=== PATIENT | female | born 1970 | race Caucasian/White ===

== ENCOUNTER 2022-12-30 09:58 | Outpatient (CLI) | payer BC | END 2022-12-30 09:59 | disposition home or self-care (01) | LOC: CSHMAMMO 09:58 | PROVIDERS: ATTEND Family Medicine | DX: Z12.31 Encounter for screening mammogram for malignant neoplasm of breast (principal) | CPT/HCPCS: 77063; 77067 ==

== ENCOUNTER 2024-02-07 10:36 | Outpatient (CLI) | payer BC | END 2024-02-07 10:37 | disposition home or self-care (01) | LOC: CSHMAMMO 10:36 | PROVIDERS: ATTEND Family Medicine | DX: Z12.31 Encounter for screening mammogram for malignant neoplasm of breast (principal) | CPT/HCPCS: 77063; 77067 ==

== ENCOUNTER 2024-02-29 15:25 | Outpatient (CLI) | payer BC | END 2024-02-29 15:26 | disposition home or self-care (01) | LOC: CSHMAMMO 15:25 | PROVIDERS: ATTEND Obstetrics & Gynecology | DX: Z13.820 Encounter for screening for osteoporosis (principal); M85.89 Other specified disorders of bone density and structure, multiple sites | CPT/HCPCS: 77080 ==

== ENCOUNTER 2025-04-30 13:08 | Outpatient (CLI) | payer BC | END 2025-04-30 13:09 | disposition home or self-care (01) | LOC: CSHMAMMO 13:08 | PROVIDERS: ATTEND Obstetrics & Gynecology | DX: R92.1 Mammographic calcification found on diagnostic imaging of breast (principal) | CPT/HCPCS: G0279 ==